=== PATIENT | male | born 1945 | race African-American/Black ===

== ENCOUNTER 2019-04-13 13:06 | Emergency (ER) | payer OTHER ==
[~2019-04-13] VITALS: Ht 172.7 cm; Wt 77.0 kg
[2019-04-13 18:44] VITALS: BP 141/91
== END 2019-04-13 19:30 | disposition left against medical advice (07) ==
LOC: ER 13:06
DX: R10.9 Unspecified abdominal pain (principal); Z53.21 Procedure and treatment not carried out due to patient leaving prior to being seen by health care provider